=== PATIENT | female | born 1955 | race American Indian/Alaskan Native ===

== ENCOUNTER 2017-05-28 14:06 | Emergency (ER) | payer OTHER ==
[2017-05-28 14:27] VITALS: BP 162/90
--- NOTE | 2017-05-28 15:54 | XRay Report ---
Right ankle 3 views. History: Pain after trauma. Findings: There are no fractures or other significant findings.
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
[2017-05-28] MEDS ORDERED: MOTRIN PO ONE (17:54)
== END 2017-05-28 18:13 | disposition home or self-care (01) ==
LOC: ED 14:06
DX: S96.911A Strain of unspecified muscle and tendon at ankle and foot level, right foot, initial encounter (principal); S99.911A Unspecified injury of right ankle, initial encounter; S99.921A Unspecified injury of right foot, initial encounter; V49.49XA Driver injured in collision with other motor vehicles in traffic accident, initial encounter; Y93.9 Activity, unspecified; Y92.9 Unspecified place or not applicable; Y99.9 Unspecified external cause status

== ENCOUNTER 2021-10-06 08:25 | Day surgery (SDC) | payer MEDICARE, OTHER ==
[~2021-10-06 08:25] MED LIST: SODIUM CHLORIDE 0.9% 1000 ML 1,000 ML IV SCH
[2021-10-06] MEDS ORDERED: propofoL 200 MG/20 ML VIAL IV ONE ×2 (09:39)
--- NOTE | 2021-10-06 10:28 | Procedure Note ---
Date of procedure: 10/06/21 Pre-op diagnosis: GERD/ H/O colon Polyps/ F/H/O Cancer Post-op diagnosis: other (Mild to Moderate Erosive, Esophagitis/ Gastritis/ Solitary, Rectal Polyp (removed by cold biopsy)/ Extensive, Diverticular Disease ( most pronounced on the Left Colon)/ Minor,Internal Hemorrhoids) Procedure: EGD with Biopsy and colonoscopy with Cold Biopsy Anesthesia: [facility] [place] Surgeon: CATRACHITA NELSON Estimated blood loss: minimal Pathology: list Specimen disposition: to lab Condition: stable Disposition: same day (Treat with PPI, encourage fiber intake and avoid aspirin and NSAID for 5 days; otherwise resume home medication. F/U in 1 to 2 weeks ([phone]).)
--- NOTE | 2021-10-06 10:31 | Operative Report ---
DATE OF SURGERY: 10/06/2021 PROCEDURE PERFORMED: EGD with biopsy. INDICATIONS: This is a 66-year-old slightly obese -[place] female having GERD symptoms. EGD was done to make sure there was not any significant upper GI pathology present. DESCRIPTION OF PROCEDURE: Procedure was done after getting informed consent with MAC anesthesia. The instrument was passed through the hypopharynx into the esophagus, which showed mild to moderate erosive esophagitis. Stomach showed gastritis. Biopsy was done from the distal esophagus to assess for the severity of the erosive esophagitis. Additional biopsy was done from the gastric antrum and the gastric body to rule out for H. pylori and atrophic gastritis. The pylorus was patent. The duodenum in the first and second portion appeared normal. There was no evidence of any peptic ulcer disease noted within the gastric or the duodenal lumen. There was minimal bleeding associated with the procedure. At the end of the procedure, the patient did have a drop in her oxygen saturation and Ambu bag had to be used to bring her oxygen levels up prior to doing the colonoscopy. ASSESSMENT: Gastroesophageal reflux disease symptoms, [id number]-cpijgoxa erosive esophagitis, gastritis, no peptic ulcer disease noted. Patent pylorus. The patient did have a drop in her oxygen saturation, requiring the use of the Ambu bag. There was minimal bleeding associated with the procedure. The patient is to be treated with PPI and asked to avoid aspirin and aspirin-related products for the next few days and a colonoscopy will be done for further assessment. Procedure was done in the GI lab with assistance of the GI lab team, which included the GI nurse, the technical account executive and with assistance of anesthesia. TID: [id number] RECEIPT: [id number] VANESSA/ADAM
--- NOTE | 2021-10-06 10:33 | Operative Report ---
DATE OF SURGERY: 10/06/2021 PROCEDURE: Colonoscopy with cold biopsy. INDICATIONS: This is a 66-year-old slightly obese -[place] female who also has GERD symptoms. EGD showed presence of [id number]-[id number] erosive esophagitis and gastritis, but no peptic ulcer disease noted. Colonoscopy was done because of the patient's prior history of colon polyps as part of colon polyp screening and family history of cancer. DESCRIPTION OF PROCEDURE: Initial rectal examination was unremarkable. Instrument was passed through the rectum onto the cecum, which was identified by the ileocecal valve and appendiceal orifice. Visualization was fair to good. The terminal rectum was intubated and showed normal mucosa. The patient had scattered diverticula throughout the colon. There were a few noted in the proximal colon as well as some in the transverse colon and several in the left colon, some of which were quite deep. In the rectum, there was a 7-8 mm polyp noted that was removed by cold biopsy with minimal bleeding and the rectum showed some minor internal hemorrhoid on the retroverted view. ASSESSMENT: History of colon polyps, family history of cancer, colon polyp screening, solitary rectal polyp about 7-8 mm, removed by cold biopsy, extensive deep diverticular disease, most pronounced in the left colon, minor internal hemorrhoid and a normal terminal ileal mucosa. PLAN: To have the patient avoid aspirin and aspirin-related products for the next few days, otherwise, resume home medication. Encouraged the patient to take fiber supplements. Treat the patient with PPI because of the EGD findings of esophagitis and gastritis and have the patient follow up in the office in 1-2 weeks' time. Procedure was done in the GI lab with assistance of the GI lab team, which included the GI nurse, the instrumentation engineering technician and with assistance of anesthesia. TID: [id number] RECEIPT: [id number] VANESSA/CHELSY
[2021-10-06 12:19] VITALS: BP 107/56
--- NOTE | 2021-10-06 14:49 | Anesthesia Day of Surgery ---
Anesthesia Day of Surgery - Day of Surgery Patient Examined: Yes Patient H&P Reviewed: Yes Patient is NPO: Yes Jesus's Test: N/A
--- NOTE | 2021-10-06 14:49 | Anesthesia Consultation ---
Anesthesia Consult and Med Hx Date of service: 10/06/21 - Airway Anesthetic Teeth Evaluation: Dentures ROM Head & Neck: Adequate Mental/Hyoid Distance: Adequate Mallampati Class: Class II - Pulmonary Exam CTA: Yes - Cardiac Exam Cardiac Exam: RRR - Pre-Operative Health Status ASA Pre-Surgery Classification: ASA3 Proposed Anesthetic Plan: MAC - Pulmonary Hx Smoking: No Hx Respiratory Symptoms: No - Cardiovascular System Hx Hypertension: Yes (took medication this morning) - Central Nervous System Hx Neuromuscular Disorder: No - Endocrine Hx End Stage Renal Disease: No Hx Liver Disease: No Hx Thyroid Disease: No - Other Systems Hx Alcohol Use: No - Additional Comments Anesthesia Medical History Comments: No GAC. No FHAC.
--- NOTE | 2021-10-06 17:28 | Post Anesthesia Evaluation ---
- Post Anesthesia Evaluation Patient Participated: Yes Airway Patent: Yes Stable Respiratory Function: Yes Nausea/Vomiting: No Temp > 96.8F: Yes Pain Manageable: Yes Adequeate Hydration: Yes Anesthesia Complications: No Block Receding Appropriately: Not Applicable Patient on Ventilator: No
== END 2021-10-06 08:26 | disposition home or self-care (01) ==
LOC: GIO 08:25
DX: Z12.11 Encounter for screening for malignant neoplasm of colon (principal); K21.00 Gastro-esophageal reflux disease with esophagitis, without bleeding; K29.50 Unspecified chronic gastritis without bleeding; K57.30 Diverticulosis of large intestine without perforation or abscess without bleeding; K64.8 Other hemorrhoids; B96.81 Helicobacter pylori [H. pylori] as the cause of diseases classified elsewhere; D12.8 Benign neoplasm of rectum; K31.89 Other diseases of stomach and duodenum; I10 Essential (primary) hypertension; Z20.822 Contact with and (suspected) exposure to COVID-19; Z86.010 Personal history of colon polyps; Z80.0 Family history of malignant neoplasm of digestive organs; Z98.890 Other specified postprocedural states; Z79.899 Other long term (current) drug therapy; Z90.710 Acquired absence of both cervix and uterus; Z80.3 Family history of malignant neoplasm of breast; Z80.8 Family history of malignant neoplasm of other organs or systems
CPT/HCPCS: 43239; 45380; 88305; 88342; J2704; J7030; U0003; J7120; Q0162